=== PATIENT | female | born 1985 | race Caucasian/White ===

== ENCOUNTER 2020-04-01 09:34 | Inpatient (IN) | payer OTHER, SELFPAY ==
[2020-04-01] VITALS (67 sets, daily range): BP systolic 107–142; BP diastolic 47–95; PULSE 70–98; RESP 18; TEMP 36.5–37.2; O2SAT 97–99; BMI 33.7
--- NOTE | 2020-04-01 09:34 | LDADM ---
This patient, Kelly Artis, was admitted to Labor/Delivery/Recovery 106 on 04/01/20 at 09:34. Plans for labor, pain management and were discussed with patient. Patient/family oriented to hospital policies and general routines including ID bracelet, bed and alarms, visiting hours, pain management, procedures, bathroom and other care routines, personal items, smoking policy, room service/diet and guest tray routines, security routines, and visiting hours. Patient/Family are encouraged to report perceived risks to care and to ask questions if they do not understand what they are told or what they should do. See OBIX for further documentation.
[2020-04-01 10:21] LABS: Basophils Percent Auto 0.3 % (0.2-1.2); Eosinophils Absolute Auto 0.1 K/mm3 (0-0.3); Eosinophils Percent Auto 0.7 % (0-4.4); Hematocrit 39.4 % (37.0-47.0); Hemoglobin 13.9 g/dL (12.0-15.0); Immature Granulocyte Absolute 0.07 K/mm3 (0.00-0.031); Immature Granulocyte Percent A 0.6 % (0-0.5); Lymphocytes Percent Auto 14.7 % (18.3-44.2); Mean Corpuscular HGB Conc 35.3 g/dl (32-36); Mean Corpuscular Hemoglobin 32.1 pg (26-34); Mean Platelet Volume 10.4 fl (7.4-10.4); Monocytes Absolute Auto 0.7 K/mm3 (0.1-0.6); Monocytes Percent Auto 6.3 % (2.6-8.5); Neutrophils Absolute Auto 8.4 K/mm3 (1.3-6.7); Neutrophils Percent Auto 77.4 % (45.5-73.1); Platelet Count Result 186 k/mm3 (150-375); Red Blood Count 4.33 M/mm3 (4.2-5.4); Red Cell Distribution Width 13.6 % (11.5-14.5); White Blood Count 10.9 K/mm3 (4.5-10.0)
[2020-04-01] MEDS: AMPICILLIN 2 GM/NS 100 ML 2 GM/100 ML BAG IVPB (10:23)
[2020-04-01] MEDS: LACTATED RINGERS 1,000 ML 125 ML IV CONT ×2 (10:23→13:44)
--- NOTE | 2020-04-01 12:57 | PM.IMHP ---
H&P: HPI History of Present Illness Date/Time: 04/01/20 12:57 Chief complaint: SROM Narrative: Kelly Artis is a 34 year old female [place] P0 with last menstrual period was 12/18/2019, EDC is 04/18/2020, presents at 36 and 6 7 weeks gestation complaining of spontaneous rupture membranes prior to admission. Her appears to have been unremarkable. She has an early visit confirming dates. Review of Systems Review of Systems: All systems reviewed & are unremarkable except as noted in HPI and below PMFSH Family History Family History Father Hypertension Social History Social History Smoking status: Former smoker Tobacco type: cigarettes Substance use: never Gender identity (if verbalized by the patient): Female Spiritual care concerns: No Meds Home Medications and Allergies Home Medications Medication Instructions Recorded Confirmed Type PNV cmb#95-ferrous fumarate-FA 1 tablet PO DAILY 03/28/20 04/01/20 History [] Allergies Allergy/AdvReac Type Severity Reaction Status Date / Time No Known Allergies Allergy Verified 03/28/20 15:09 Vital Signs Vital Signs - 24 hr 04/01/20 10:30 04/01/20 10:36 04/01/20 10:46 Temperature 98.1 F Pulse Rate 95 92 Blood Pressure 136/72 139/75 04/01/20 11:01 04/01/20 11:16 04/01/20 11:31 Temperature Pulse Rate 85 80 82 Blood Pressure 140/71 142/76 H 128/82 04/01/20 11:46 04/01/20 12:00 04/01/20 12:01 Temperature 97.7 F Pulse Rate 78 72 Blood Pressure 139/80 133/75 04/01/20 12:16 04/01/20 12:31 04/01/20 12:46 Temperature Pulse Rate 79 78 78 Blood Pressure 122/84 138/75 135/67 Exam Const: General: no acute distress Eyes: General: appearance normal, both eyes and all related structures Neck: Neck: supple and no JVD Thyroid: thyroid normal Resp: Effort & Inspection: normal respiratory effort Auscultation: clear to auscultation bilaterally Cardio: Rate: regular rate Rhythm: regular rhythm GI: Inspection: non-distended GI Palp: Yes Soft to palpation, No Tenderness to palpation present (GI) and No Guarding due to palpation present (GI) Auscultation: normal bowel sounds : External Female Exam: normal external appearance Speculum Exam - Vagina: normal appearance of the vagina Speculum Exam - Cervix: Cervical os closed (Cervix 3-4/80%/-2 by RN exam. heart tones are reassuring) Skin: General skin exam: no rashes or lesions noted Extrem: General: normal to inspection and no edema Psych: Mental Status: mental status grossly normal Affect: normal affect H&P: Results Labs Labs: Short CBC 04/01/20 Range/Units 10:09 WBC 10.9 H (4.5-10.0) K/mm3 Hgb 13.9 (12.0-15.0) g/dL Hct 39.4 (37.0-47.0) % Plt Count 186 (150-375) k/mm3 Assessment and Plan Additional Plan Impression: 36 and 6 7th weeks with spontaneous rupture membranes Plan: Spontaneous vaginal delivery is expected. Antibiotics were started. She has an epidural candidate. Consider Pitocin
[2020-04-01] MEDS: OXYTOCIN 30 UNITS/NS 500 ML 30 UNITS/500 ML BAG 6 UNITS IV CONT (13:44)
--- NOTE | 2020-04-01 13:49 | WPDANESEPP ---
Anes - Eval Pre Procedure Procedure: labor epidural Date/Time: 04/01/20 13:49 Preop Diagnosis: labor pain Pre Op Diagnosis: SROM Patient Data Age: 34 Gender: F Height: 5 ft 6 in Weight: 95 kg Last Vital Signs Temp 36.5 C 04/01/20 12:00 Pulse 83 04/01/20 13:46 BP 125/76 04/01/20 13:46 Allergies Allergy/AdvReac Type Severity Reaction Status Date / Time No Known Allergies Allergy Verified 03/28/20 15:09 Home Medications Medication Instructions Recorded Confirmed Type PNV cmb#95-ferrous fumarate-FA 1 tablet PO DAILY 03/28/20 04/01/20 History [] Laboratory Tests 04/01/20 04/01/20 04/01/20 10:09 10:09 10:09 WBC 10.9 K/mm3 H K/mm3 (4.5-10.0) RBC 4.33 M/mm3 M/mm3 (4.2-5.4) Hgb 13.9 g/dL g/dL (12.0-15.0) Hct 39.4 % % (37.0-47.0) MCV 91.0 fl fl (80-100) MCH 32.1 pg pg (26-34) MCHC 35.3 g/dl g/dl (32-36) RDW 13.6 % % (11.5-14.5) Plt Count 186 k/mm3 k/mm3 (150-375) MPV 10.4 fl fl (7.4-10.4) Immature Gran % (Auto) 0.6 % H % (0-0.5) Neut % (Auto) 77.4 % H % (45.5-73.1) Lymph % (Auto) 14.7 % L % (18.3-44.2) [place] % (Auto) 6.3 % % (2.6-8.5) Eos % (Auto) 0.7 % % (0-4.4) Baso % (Auto) 0.3 % % (0.2-1.2) Lymph # (Auto) 1.60 K/mm3 K/mm3 (0.9-3.2) [place] # (Auto) 0.7 K/mm3 H K/mm3 (0.1-0.6) Eos # (Auto) 0.1 K/mm3 K/mm3 (0-0.3) Baso # (Auto) 0.0 K/mm3 K/mm3 (0.0-0.1) Abs Immat Gran (auto) 0.07 K/mm3 H K/mm3 (0.00-0.031) Absolute Neuts (auto) 8.4 K/mm3 H K/mm3 (1.3-6.7) Absolute Nucleated RBC 0.0 K/mm3 K/mm3 (0.0-0.012) Nucleated RBC % 0.0 % % (0.0-0.2) RPR Pending Blood Type O Positive Antibody Screen Negative Patient hx anesthesia problems: none Family hx anesthesia problems: none PMFSH Family History Family History Father Hypertension Social History Social History Smoking status: Former smoker Tobacco type: cigarettes Substance use: never Gender identity (if verbalized by the patient): Female Spiritual care concerns: No Exam Day of Procedure 04/01/20 13:49
[2020-04-01] MEDS: AMPICILLIN 1 GM/NS 50 ML 1 GM/50 ML BAG IVPB (14:47)
--- NOTE | 2020-04-01 19:21 | PM.OBPRVD ---
OB - Delivery Note Procedure Delivery date: 04/01/20 Intrapartal events: None Induction method: none Delivery monitor: external FHT Route of delivery: Episiotomy description: None Laceration Description: None Quantitative Blood Loss: 57 Anesthesia type: Epidural Disposition: floor Baby Date of : 04/01/20 Time of : 19:11 Weeks of gestation at delivery: 37 gender: Male Weight (pounds): 8 Weight (ounces): 4 presentation: vertex position: Left Occiput Anterior Placenta delivery description: Spontaneous cord vessel description: 3 Vessels score one minute: 8 score five minutes: 9
[2020-04-01] MEDS: OXYTOCIN 30 UNITS/NS 500 ML 30 UNITS/500 ML BAG 125 UNITS IV CONT (19:44)
[2020-04-01] MEDS: WITCH HAZEL 40 PADS 1 PAD TOPICAL (21:37)
[2020-04-01] MEDS: BENZOCAINE 20% AER SPR (*SP) 56 GM CAN 1 SPRAY TOPICAL (21:37)
[2020-04-02] MEDS: ACETAMINOPHEN 325 MG TABLET 650 MG PO (02:24)
[2020-04-02 06:08] LABS: Hematocrit 37.8 % (37.0-47.0); Hemoglobin 12.9 g/dL (12.0-15.0)
--- NOTE | 2020-04-02 06:22 | P.PNOB_ITS ---
OB - PN: Subj Subjective Date/time seen: 04/02/20 06:22 Patient comments: no complaints and pain well controlled baby status: doing well and nursing well OB - PN: Obj Data Labs CBC & Chem 7: 04/01/20 10:09 Labs: Laboratory Results - last 24 hr 04/01/20 04/01/20 10:09 10:09 WBC 10.9 H RBC 4.33 Hgb 13.9 Hct 39.4 MCV 91.0 MCH 32.1 MCHC 35.3 RDW 13.6 Plt Count 186 MPV 10.4 Immature Gran % (Auto) 0.6 H Neut % (Auto) 77.4 H Lymph % (Auto) 14.7 L [place] % (Auto) 6.3 Eos % (Auto) 0.7 Baso % (Auto) 0.3 Lymph # (Auto) 1.60 [place] # (Auto) 0.7 H Eos # (Auto) 0.1 Baso # (Auto) 0.0 Abs Immat Gran (auto) 0.07 H Absolute Neuts (auto) 8.4 H Absolute Nucleated RBC 0.0 Nucleated RBC % 0.0 Blood Type O Positive Antibody Screen Negative OB - PN A/P Plan day: 1 Plan: routine care Time Spent With Patient Time: Total time spent is greater than 50% in coordination of care (as documented) at patient's floor/unit and/or counseling patient: Time with patient: less than 15 minutes Review of Systems Review of Systems: All systems reviewed & are unremarkable except as noted in HPI and below Exam Const: General: no acute distress Eyes: General: appearance normal, both eyes and all related structures Neck: Neck: supple and no JVD Thyroid: thyroid normal Resp: Effort & Inspection: normal respiratory effort Auscultation: clear to auscultation bilaterally Cardio: Rate: regular rate Rhythm: regular rhythm GI: Inspection: non-distended GI Palp: Yes Soft to palpation, No Tenderness to palpation present (GI) and No Guarding due to palpation present (GI) Auscultation: normal bowel sounds : General: Yes bladder normal to palpation External Female Exam: normal external appearance Speculum Exam - Vagina: normal vaginal discharge and No vaginal bleeding Speculum Exam - Cervix: nontender Bimanual exam- vagina & uterus: bladder normal to palpation and No Cervical tenderness present OB/external & speculum: No vaginal bleeding Skin: General skin exam: no rashes or lesions noted Extrem: General: normal to inspection and no edema Psych: Mental Status: mental status grossly normal Affect: normal affect
[2020-04-02] MEDS: IBUPROFEN 600 MG TABLET PO ×2 (07:17→16:16)
[2020-04-02] MEDS: MULTIVIT/MIN/PREN/FOL AC/IRON TABLET 1 TAB PO (07:17)
[2020-04-02] MEDS: DOCUSATE SODIUM 100 MG CAPSULE PO ×2 (07:17→16:16)
[2020-04-02 11:57] VITALS: BP 117/72; PULSE 75; RESP 16; TEMP 36.3; O2SAT 97
[2020-04-02 20:00] VITALS: BP 127/56; PULSE 73; RESP 16; TEMP 37.1; O2SAT 100
[2020-04-03] MEDS: IBUPROFEN 600 MG TABLET PO ×2 (01:40→13:27)
[2020-04-03] MEDS: TETANUS,DIPHTHERIA,AC PERTUSSIS ADULT (0.5 ML) BOOSTRIX IM (04:39)
[2020-04-03 07:20] VITALS: BP 123/74; PULSE 73; RESP 20; TEMP 36.4
--- NOTE | 2020-04-03 08:34 | PM.DS ---
DS: Admitting Diagnosis Admitting Diagnosis Admitting Diagnosis: SROM term iup DS: Summary Time Spent with Patient Time attestation: Total time spent providing and/or coordinating discharge services: The patient was admitted in active labor. her hospital course was unremarkable. She remained afebrile. She was up, were not difficulty, passing gas, eating, and general without complaints upon discharge. Exam Const: General: no acute distress Eyes: General: appearance normal, both eyes and all related structures Neck: Neck: supple and no JVD Thyroid: thyroid normal Resp: Effort & Inspection: normal respiratory effort Auscultation: clear to auscultation bilaterally Cardio: Rate: regular rate Rhythm: regular rhythm GI: Inspection: non-distended GI Palp: Yes Soft to palpation, No Tenderness to palpation present (GI) and No Guarding due to palpation present (GI) Auscultation: normal bowel sounds : General: Yes bladder normal to palpation External Female Exam: normal external appearance Speculum Exam - Vagina: normal vaginal discharge and No vaginal bleeding Speculum Exam - Cervix: nontender Bimanual exam- vagina & uterus: bladder normal to palpation and No Cervical tenderness present OB/external & speculum: No vaginal bleeding Skin: General skin exam: no rashes or lesions noted Extrem: General: normal to inspection and no edema Psych: Mental Status: mental status grossly normal Affect: normal affect Discharge Plan Discharge Attending physician on discharge: Binu Carpio Discharging Clinician: Kody Renteria Patient Disposition: Home, Self-Care Activity: may shower, no straining, may drive after 2 weeks and pelvic rest Diet: heart healthy Patient Instructions: Antibiotic Form Stand Alone Forms: General Discharge Information Follow-up/Referrals: Kody Renteria MD [Primary Care Provider] - Discharge Medications: No Action PNV cmb#95-ferrous fumarate-FA [] 28 mg iron- 800 mcg Tablet 1 tablet PO DAILY RF: 0 Date of admission: 04/01/20 09:34 Primary Care Provider: Kody Renteria Admitting Provider: Kody Renteria Attending physician on admission: Kody Renteria Condition: Stable
--- NOTE | 2020-04-03 08:38 | PM.OBPNVD ---
OB - PN: Subj Subjective Date/time seen: 04/03/20 08:38 Patient comments: no complaints and pain well controlled baby status: doing well and nursing well OB - PN: Obj Data Labs CBC & Chem 7: 04/02/20 04:42 OB - PN A/P Plan day: 2 Plan: routine care, discharge home and follow up 6 weeks Time Spent With Patient Time: Total time spent is greater than 50% in coordination of care (as documented) at patient's floor/unit and/or counseling patient: Time with patient: less than 15 minutes Review of Systems Review of Systems: All systems reviewed & are unremarkable except as noted in HPI and below Exam Const: General: no acute distress Eyes: General: appearance normal, both eyes and all related structures Neck: Neck: supple and no JVD Thyroid: thyroid normal Resp: Effort & Inspection: normal respiratory effort Auscultation: clear to auscultation bilaterally Cardio: Rate: regular rate Rhythm: regular rhythm GI: Inspection: non-distended GI Palp: Yes Soft to palpation, No Tenderness to palpation present (GI) and No Guarding due to palpation present (GI) Auscultation: normal bowel sounds : General: Yes bladder normal to palpation External Female Exam: normal external appearance Speculum Exam - Vagina: normal vaginal discharge and No vaginal bleeding Speculum Exam - Cervix: nontender Bimanual exam- vagina & uterus: bladder normal to palpation and No Cervical tenderness present OB/external & speculum: No vaginal bleeding Skin: General skin exam: no rashes or lesions noted Extrem: General: normal to inspection and no edema Psych: Mental Status: mental status grossly normal Affect: normal affect
[2020-04-03] MEDS: MULTIVIT/MIN/PREN/FOL AC/IRON TABLET 1 TAB PO (10:37)
[2020-04-03] MEDS: DOCUSATE SODIUM 100 MG CAPSULE PO (10:43)
[2020-04-03] MEDS: LANOLIN (LANSINOH) 7.5 GM CREAM 1 APPLIC TOPICAL (13:28)
[2020-04-03 22:13] LABS: Rapid Plasma Reagin Non-Reactive (NonReactive)
[2020-04-06 09:34] VITALS: BP 145/77; PULSE 75; RESP 20; TEMP 36.7; O2SAT 100
== END 2020-04-03 18:00 | disposition home or self-care (01) | DRG 807 ==
LOC: ANHLDR 16:24 → ANHOB2 04-03 08:37 → ANHLDR 04-05 12:10 → ANHOB2 04-05 12:10
PROVIDERS: Admitting Provider Obstetrics & Gynecology; PCP Student in an Organized Health Care Education/Training Program; Visit Provider Obstetrics & Gynecology
DX: O76 Abnormality in fetal heart rate and rhythm complicating labor and delivery (principal); Z37.0 Single live birth; O99.824 Streptococcus B carrier state complicating childbirth; Z3A.37 37 weeks gestation of pregnancy; Z23 Encounter for immunization
CPT/HCPCS: 36415; 84112; 85014; 85018; 85025; 86592; 86850; 86900; 86901; 90471; 90653; 90715; A9270; G0008; J0290; J2590; J2795; J7120